=== PATIENT | female | born 1970 | race Caucasian/White ===

== ENCOUNTER 2020-12-22 11:26 | Inpatient (IN) | payer MEDICAID ==
[2020-12-22] VITALS (16 sets, daily range): BP systolic 99–156; BP diastolic 57–91
[~2020-12-22] VITALS: Ht 170.2 cm; Wt 81.8 kg
[2020-12-22] MEDS ORDERED: normal saline 1000ML IV soln IVB ONE (12:00)
[2020-12-22] MEDS ORDERED: morphine 4 MG/ML inj SYRINge IV PRN ×2 (12:00→16:25)
[2020-12-22] MEDS ORDERED: ondansetron/PF 4mg/2ml inj IV ONE (12:00)
[2020-12-22 12:40] LABS: BASOPHILS # (AUTO) 0.1 X10'3 (0-0.2); BASOPHILS % (AUTO) 0.3 % (0-1); EOSINOPHILS # (AUTO) 0.1 X10'3 (0-0.9); EOSINOPHILS % (AUTO) 0.5 % (0-6); HEMATOCRIT 45.3 % (35.0-45.0); HEMOGLOBIN 15.2 g/dl (12.0-16.0); LYMPHOCYTES # (AUTO) 0.9 X10'3 (1.1-4.8); LYMPHOCYTES % (AUTO) 5.2 % (21-51); MEAN CORPUSCULAR HEMOGLOBIN 29.9 PG (27.0-31.0); MEAN CORPUSCULAR HGB CONC 33.5 g/dL (33.0-36.5); MEAN CORPUSCULAR VOLUME 89.3 FL (78-98); MEAN PLATELET VOLUME 7.6 FL (7.4-10.4); MONOCYTES # (AUTO) 1.1 X10'3 (0-0.9); MONOCYTES % (AUTO) 6.7 % (2-12); NEUTROPHILS # (AUTO) 14.5 X10'3 (1.8-7.7); NEUTROPHILS % (AUTO) 87.3 % (42-75); PLATELET COUNT 433 X10'3 (140-440); RED BLOOD COUNT 5.08 X10'6 (4.20-5.60); RED CELL DISTRIBUTION WIDTH 15.2 % (11.5-14.5); WHITE BLOOD COUNT 16.6 X10'3 (4.5-11.0)
[2020-12-22 12:42] LABS: CLARITY,URINE CLOUDY (Clear); COLOR,URINE YELLOW (Yellow); GLUCOSE, URINE NEGATIVE (Neg); KETONES,URINE NEGATIVE (Neg); LEUKOCYTE ESTERASE ,URINE LARGE (Neg); NITRITES, URINE NEGATIVE (Neg); OCCULT BLOOD,URINE LARGE (Neg); PH,URINE 6.5 (4.8-8.0); PROTEIN,URINE 100 mg/dl (Neg)
[2020-12-22 12:43] LABS: UA COLLECTION TYPE CLN CATCH MIDSTREAM
[2020-12-22] MEDS: fentaNYL/PF 50MCG/1 ML 2ML syringe IV ONE ×2 (12:44→12:45)
[2020-12-22 12:49] LABS: MUCUS STRANDS FEW /LPF (Neg); SQUAMOUS EPITHELIAL CELL,UR MODERATE /LPF (FEW); TRANSITIONAL EPI CELLS,URINE FEW /HPF
[2020-12-22 12:51] LABS: WBC,URINE TNTC /HPF (0-4)
[2020-12-22 12:52] LABS: AMORPHOUS URATES 2+; BACTERIA,URINE FEW /HPF (Neg)
[2020-12-22 12:59] LABS: ALANINE AMINOTRANSFERASE 40 U/L (12-78); ALBUMIN 3.3 G/DL (3.4-5.0); ALBUMIN/GLOBULIN RATIO 0.6 (1.1-1.5); ALKALINE PHOSPHATASE 151 IU/L (46-116); ANION GAP 9 (8-16); ASPARTATE AMINO TRANSFERASE 25 U/L (10-37); BILIRUBIN,TOTAL 0.7 MG/DL (0.1-1.0); BLOOD UREA NITROGEN 10 MG/DL (7-18); BUN/CREATININE RATIO 7.6 (6.6-38.0); CALCIUM 9.4 MG/DL (8.5-10.1); CHLORIDE 101 MMOL/L (99-107); CREATININE 1.31 MG/DL (0.40-0.90); GLUCOSE 109 MG/DL (70-104); SODIUM 139 MMOL/L (135-145); TOTAL CARBON DIOXIDE 28.8 MMOL/L (24-32); TOTAL PROTEIN 8.7 G/DL (6.4-8.2); eGFR 43 ML/MIN
[2020-12-22] MEDS ORDERED: NO HOME MEDS (13:49)
[2020-12-22] MEDS ORDERED: magnesium hydroxide 30ml (MOM) UD suspension PO PRN (14:00)
[2020-12-22] MEDS ORDERED: acetaminophen 325mg tablet PO PRN ×2 (14:00)
[2020-12-22] MEDS ORDERED: HYDROcodone/acetaminophen 5mg/325mg tablet PO PRN (14:00)
[2020-12-22] MEDS ORDERED: ondansetron/PF 4mg/2ml inj IV PRN ×2 (14:00→16:25)
[2020-12-22] MEDS ORDERED: morphine 2 MG/ML inj. syringe IV PRN ×3 (14:00→16:25)
[2020-12-22] MEDS ORDERED: mag hydrox/Alum hydrox/simeth 30ml oral suspension PO PRN (14:00)
[2020-12-22] MEDS ORDERED: HYDROcodone/acetaminophen 10/325mg tab PO PRN (14:00)
[2020-12-22] MEDS ORDERED: CefTRIAXone 2gm/D5W 50ml BAG 50 ML IV ONE (14:00)
[2020-12-22] MEDS: normal saline 1000ml 1,000 ML IV SCH (14:14)
[2020-12-22] MEDS ORDERED: potassium Cl 20 mEq SR tablet PO STA (14:33)
--- NOTE | 2020-12-22 14:34 | NUR ---
PATIENT COMPLAINING OF ANXIETY ABOUT UPCOMING PROCEDURE, REQUESTING TO GO OUTSIDE AND SMOKE. DR WHITESIDE UPDATED AND ORDERS PLACED.
[2020-12-22] MEDS ORDERED: LORazepam 2 mg/ml vial IV ONE (14:35)
[2020-12-22] MEDS ORDERED: HYDROmorphone/PF 0.2 MG/ML SYRINGE IV PRN ×2 (16:25)
[2020-12-22] MEDS ORDERED: ringers solution, lacted 1,000 ML IV SCH (16:25)
[2020-12-22] MEDS ORDERED: proCHLORperazine 10 MG/2 ml inj IV PRN (16:25)
[2020-12-22] MEDS ORDERED: meperidine/PF 25mg/ml syringe IV PRN (16:25)
[2020-12-22] MEDS ORDERED: acetaminophen 1,000mg/100ml IV 100 ML IV PRN (16:25)
[2020-12-22] MEDS ORDERED: hydrALAZINE 20mg/ml inj. IV PRN (16:25)
[2020-12-22] MEDS ORDERED: labetalol 20mg/4ml (5mg/ml) syringe IV PRN (16:25)
[2020-12-22] MEDS ORDERED: iohexol 300 MG/1 ML 50ml polymer ONE (16:26)
[2020-12-22 16:30] LABS: ISTAT CREATININE 1.2 mg/dL (0.6-1.1); ISTAT HGB 13.6 g/dl (12.0-16.0); ISTAT IONIZED CALCIUM 1.23 mmol/L (1.03-1.32); ISTAT K 4.2 mmol/L (3.5-5.1); POC BUN/CREATININE RATIO 9.2 (6.6-38.0)
[2020-12-22] MEDS ORDERED: midazolam 1 mg/ML 2ml injection ONE (16:31)
[2020-12-22] MEDS ORDERED: sevoflurane 250ml liquid IH ONE (16:32)
[2020-12-22] MEDS ORDERED: fentaNYL/PF 50MCG/1 ML 2ML syringe ONE (16:37)
[2020-12-22] MEDS ORDERED: LIDOcaine 2% (20mg/ml) 5ml vial ONE (16:46)
[2020-12-22] MEDS ORDERED: propofol inj 20 ML IV ONE (16:46)
[2020-12-22] MEDS ORDERED: ondansetron/PF 4mg/2ml inj ONE (16:47)
[2020-12-22] MEDS ORDERED: dexamethasone sod phosphate 4mg/ml inj. ONE (16:47)
[2020-12-22] MEDS ORDERED: ePHEDrine 50MG/ML INJ. ONE (17:11)
--- NOTE | 2020-12-22 17:20 | NUR ---
Received from OR via , accompanied by Anesthesiologist and report given by Anesthesiolgist. PATIENT WAKING UP, DENIES PAIN, VS WNL, CSM INTACT, SCD ON, 20G PIV LUE, CYSTOSCOPY
--- NOTE | 2020-12-22 18:16 | NUR ---
PATIENT REQUEST TO PEE BUT IS STILL VERY LETHARGIC TO WALK TRANSFER TO [facility] SO I OFFERED THE BED CHENG AND SHE FELL BACK TO SLEEP MID SENTENCE DURING THE DISCUSSION.
--- NOTE | 2020-12-22 18:30 | NUR ---
Pt arrived via bed, Iv infusing. Pt denies pain, and is going to the bathroom at this time. Pt stated that she has already used the toilet to void. Post op VS in progress. Addendum: 12/22/20 at 5558 by Ny Wilson RN Amended: Links added.
--- NOTE | 2020-12-22 18:30 | NUR ---
PATIENT a&ox4, DENIES PAIN, VS WNL, CSM INTACT, SCD ON, 20G PIV LUE, CYSTOSCOPY. patient taken to surgical with all belongings and hooked up to monitors in room and report given to rn who has taken over patient care.
[2020-12-22] MEDS: nicotine 21mg patch - 24 hr TD SCH (19:09)
--- NOTE | 2020-12-22 21:00 | NUR ---
Daughter in room, and walking around to [employer] machine. Daughter was informed of visiting hours, and daughter was under the impression she was staying. When asked her age she stated she was 15yrs old and didn't have a ride home. Charge nurse and [employer] where made aware. Addendum: 12/22/20 at 2211 by Ny Wilson RN Amended: Links added.
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
[2020-12-23] VITALS: BP 126/76
[2020-12-23] MEDS: normal saline 1000ml 1,000 ML IV SCH (00:15)
[2020-12-23 06:01] LABS: BASOPHILS % (AUTO) 0.1 % (0-1); EOSINOPHILS % (AUTO) 0 % (0-6); HEMATOCRIT 36.4 % (35.0-45.0); HEMOGLOBIN 12.1 g/dl (12.0-16.0); LYMPHOCYTES # (AUTO) 0.6 X10'3 (1.1-4.8); LYMPHOCYTES % (AUTO) 5.9 % (21-51); MEAN CORPUSCULAR HEMOGLOBIN 29.7 PG (27.0-31.0); MEAN CORPUSCULAR HGB CONC 33.3 g/dL (33.0-36.5); MEAN PLATELET VOLUME 7.6 FL (7.4-10.4); MONOCYTES # (AUTO) 0.4 X10'3 (0-0.9); MONOCYTES % (AUTO) 4.3 % (2-12); NEUTROPHILS # (AUTO) 9.4 X10'3 (1.8-7.7); NEUTROPHILS % (AUTO) 89.7 % (42-75); PLATELET COUNT 358 X10'3 (140-440); RED BLOOD COUNT 4.09 X10'6 (4.20-5.60); WHITE BLOOD COUNT 10.5 X10'3 (4.5-11.0)
[2020-12-23 06:09] LABS: ALBUMIN 2.2 G/DL (3.4-5.0); ANION GAP 9 (8-16); BLOOD UREA NITROGEN 14 MG/DL (7-18); BUN/CREATININE RATIO 11.1 (6.6-38.0); CALCIUM 8.2 MG/DL (8.5-10.1); CHLORIDE 107 MMOL/L (99-107); CREATININE 1.26 MG/DL (0.40-0.90); GLUCOSE 130 MG/DL (70-104); POTASSIUM 3.6 MMOL/L (3.5-5.1); SODIUM 139 MMOL/L (135-145); TOTAL CARBON DIOXIDE 23.5 MMOL/L (24-32); eGFR 45 ML/MIN
--- NOTE | 2020-12-23 06:29 | NUR ---
Problems reprioritized. Patient report given, questions answered & plan of care reviewed with Lois CALDERÓN. Addendum: 12/23/20 at 0630 by Ny Wilson RN Amended: Links added.
--- NOTE | 2020-12-23 06:50 | NUR ---
PATIENT STABLE AND APPROPRIATE FOR DISCHARGE, IV TAKEN OUT, EDUCATION GIVEN, SCRIPT FOR NEW MED GIVEN TO PATIENT, ALL BELONGINGS SENT WITH PATIENT, PATIENT WALKED TO LOBBY TO AN AWAITING CAR WHERE FAMILY WILL TAKE PATIENT HOME
[2020-12-23 07:00] VITALS: BP 156/90
[2020-12-23] MEDS: nicotine 21mg patch - 24 hr TD SCH (08:00)
[2020-12-23] MEDS ORDERED: CefTRIAXone/D5W-Rocephin 1gm 50 ML IV SCH (08:00)
[2020-12-23] MEDS ORDERED: LEVO500T89 PO (08:33)
== END 2020-12-23 09:50 | disposition home or self-care (01) | DRG 710 ==
LOC: ER 11:26 → PACU 13:56 → SUR 3N 18:41
PROVIDERS: ADMIT Internal Medicine; ATTEND Internal Medicine
PROC: 0TC78ZZ Extirpation of Matter from Left Ureter, Via Natural or Artificial Opening Endoscopic (ICD-10-PCS; 2020-12-22)
PROC: BT1F1ZZ Fluoroscopy of Left Kidney, Ureter and Bladder using Low Osmolar Contrast (ICD-10-PCS; 2020-12-22)
PROC: 0T778DZ Dilation of Left Ureter with Intraluminal Device, Via Natural or Artificial Opening Endoscopic (ICD-10-PCS; principal; 2020-12-22 16:32)
DX: A41.9 Sepsis, unspecified organism (principal); N17.9 Acute kidney failure, unspecified; Z20.822 Contact with and (suspected) exposure to COVID-19; N13.6 Pyonephrosis; F17.210 Nicotine dependence, cigarettes, uncomplicated; Z87.442 Personal history of urinary calculi
CPT/HCPCS: 36415; 74176; 74420; 76000; 80047; 80048; 80053; 81001; 83605; 84145; 85025; 87040; 87070; 87075; 87081; 87088; 87635; 93005; 96375; 99285; A4618; C1758; C2617; G0378; J0696; J1100; J2001; J2060; J2250; J2270; J2405; J2704; J3010; J7030; J7120; Q9967